=== PATIENT | male | born 1970 | race American Indian/Alaskan Native ===

== ENCOUNTER 2016-10-04 17:58 | Emergency (ER) | payer SELFPAY ==
[2016-10-04] MEDS ORDERED: TORADOL PO ONE (21:28)
--- NOTE | 2016-10-04 21:33 | Emergency Department Report ---
ED Extremity Problem HPI - General Chief complaint: Shoulder Injury Stated complaint: RT SHOULDER UNABLE TO MOVE Time Seen by Provider: 10/04/16 21:23 Source: patient Mode of arrival: Ambulatory Limitations: No Limitations - History of Present Illness Initial comments: PT states a week ago, he was working out and his R shoulder felt sore. PT states he has not lifted any more weights but this am, his shoulder pain increased and he could not move his shoulder. PT states he had to walk around some before he could move his arm. PT states he works as a [employer] and he uses his arm a lot. MD Complaint: extremity pain Onset/Timin -: Gradual, week(s) Location: right, upper extremity Severity scale (0 -10): 7 (7.5) Consistency: constant Worsens with: other (movement of R shoulder ) Associated Symptoms: denies other symptoms. denies: fever, myalgias - Related Data Home Medications Medication Instructions Recorded Confirmed Last Taken No Known Home Medications [No 10/04/16 10/04/16 Unknown Reported Home Medications] Allergies Allergy/AdvReac Type Severity Reaction Status Date / Time No Known Allergies Allergy Unverified 10/04/16 18:02 ED Review of Systems ROS: Stated complaint: RT SHOULDER UNABLE TO MOVE Other details as noted in HPI Comment: All other systems reviewed and negative Constitutional: denies: chills, fever Cardiovascular: denies: chest pain Gastrointestinal: denies: nausea, vomiting Genitourinary: other (denies darker urine ). denies: hematuria Musculoskeletal: arthralgia. denies: back pain, joint swelling, myalgia ED Past Medical Hx - Past Medical History Previous Medical History?: No - Surgical History Past Surgical History?: No - Family History Family history: no significant - Social History Smoking Status: Never Smoker Substance Use Type: Alcohol - Medications Home Medications: Home Medications Medication Instructions Recorded Confirmed Last Taken Type No Known Home Medications [No 10/04/16 10/04/16 Unknown History Reported Home Medications] ED Physical Exam - General Limitations: No Limitations General appearance: alert, in no apparent distress - Head Head exam: Present: atraumatic, normocephalic - Eye Eye exam: Present: normal appearance. Absent: conjunctival injection - ENT ENT exam: Present: normal exam, normal external ear exam - Neck Neck exam: Present: normal inspection, full ROM. Absent: tenderness - Respiratory Respiratory exam: Present: normal lung sounds bilaterally. Absent: respiratory distress - Cardiovascular Cardiovascular Exam: Present: regular rate, normal rhythm, normal heart sounds - Extremities Exam Extremities exam: Present: normal inspection, full ROM, normal capillary refill , other (PT has pain with raising his R arm). Absent: tenderness, joint swelling - Back Exam Back exam: Present: normal inspection, full ROM, tenderness - Neurological Exam Neurological exam: Present: alert, oriented X3 - Psychiatric Psychiatric exam: Present: normal affect, normal mood - Skin Skin exam: Present: warm, dry, intact, normal color ED Course Vital Signs 10/04/16 18:02 Temperature 98.4 F Pulse Rate 91 H Respiratory 18 Rate Blood Pressure 134/86 O2 Sat by Pulse 96 Oximetry - Reevaluation(s) Reevaluation #1: 10/04/16 21:35 PT aware of plan of care. Reevaluation #2: 10/04/16 22:40 PT aware of XR result and plan of care. PT has no questions at this time. - Pulse Oximetry Interpretation Digit-Finger Initial Pulse Oximetry Readin Actions Taken: none ED Medical Decision Making - Radiology Data Radiology results: image reviewed R shoulder: nap - Differential Diagnosis strain, OA, tendonitis Critical care attestation.: If time is entered above; I have spent that time in minutes in the direct care of this critically ill patient, excluding procedure time. ED Disposition Clinical Impression: Right shoulder pain Qualifiers: Chronicity: acute Qualified Code(s): M25.511 - Pain in right shoulder Disposition: DISCHARGED TO HOME OR SELFCARE Is pt being admited?: No Does the pt Need Aspirin: No Condition: Stable Instructions: Rotator Cuff Injury (ED), Rotator Cuff Tendinitis (ED), Shoulder Bursitis (ED), Shoulder Sprain (ED) Additional Instructions: Do not wear your sling for over 1 week No driving or ETOH after taking Robaxin or Tylenol #3 Follow up with PCP in 3-5 days If your pain persists, you may need further imaging or physical therapy Referrals: PRIMARY MD JAZZY [Primary Care Provider] - 3-5 Days SEBASTIAN KOHLER MD [Staff Physician] - 3-[address] [facility] [place] [Outside] - 3-5 Days Time of Disposition: 22:44
[2016-10-04 23:06] VITALS: BP 125/80
--- NOTE | 2016-10-05 07:33 | XRay Report ---
RIGHT SHOULDER, 3 views: History: Right shoulder pain. Mild osteoarthritic changes are identified at the a.c. joint. Normal articulation at the glenohumeral joint. No evidence for fracture, ligamentous injury or dislocation. The soft tissues are unremarkable. IMPRESSION: Early osteoarthritic changes.
== END 2016-10-04 23:06 | disposition home or self-care (01) ==
LOC: ED 17:58
DX: M25.511 Pain in right shoulder (principal)
CPT/HCPCS: 99283

== ENCOUNTER 2018-11-19 04:48 | Inpatient (IN) | payer SELFPAY ==
[2018-11-19] MEDS ORDERED: ASPIRIN PO ONE (04:56)
[2018-11-19 05:38] LABS: BUN/Creatinine Ratio 11; Blood Urea Nitrogen 14 mg/dL (9-20); Calcium 8.6 mg/dL (8.4-10.2); Hemolysis Index 25
--- NOTE | 2018-11-19 05:39 | XRay Report ---
PROCEDURE: XR CHEST 1V AP TECHNIQUE: Chest radiograph single view. HISTORY: Chest Pain COMPARISONS: None . FINDINGS: Heart: Normal. Mediastinum/Vessels: Normal. Lungs/Pleural space: Normal. Bony thorax: No acute osseous abnormality. Life support devices: None. IMPRESSION: No acute cardiopulmonary abnormality. This document is electronically signed by Veronica Rea DO., November 19 2018 05:37:02 AM ET
[2018-11-19 05:42] LABS: Hemoglobin 15.1 gm/dl (11.8-15.2); Mean Corpuscular HGB Conc 34 % (32-34); Mean Corpuscular Volume 92 fl (84-94); Red Blood Count 4.89 M/mm3 (3.65-5.03)
[2018-11-19 05:43] LABS: Basophils % (Auto) 0.4 % (0.0-1.8); Eosinophils # (Auto) 0.2 K/mm3 (0.0-0.4); Eosinophils % (Auto) 3.5 % (0.0-4.3); Lymphocytes # (Auto) 1.9 K/mm3 (1.2-5.4); Lymphocytes % (Auto) 44.5 % (13.4-35.0); Mean Platelet Volume 9.1 fl (6-12); Monocytes # (Auto) 0.4 K/mm3 (0.0-0.8); Monocytes % (Auto) 8.8 % (0.0-7.3); Platelet Count 189 K/mm3 (140-440); Red Cell Distribution Width 13.6 % (13.2-15.2)
[2018-11-19] MEDS ORDERED: NITRO-BID 2% TP ONE (08:50)
--- NOTE | 2018-11-19 09:08 | Emergency Department Report ---
HPI - General Chief Complaint: Chest Pain Time Seen by Provider: 11/19/18 08:33 - HPI HPI: Room 22 The patient is a 48-year-old male presents with a chief complaint of chest pain. The patient states for the past 2 days he's had intermittent left chest t ightness associated with shortness of breath and diaphoresis. Patient denies nausea or vomiting. Patient denies history of cough. The patient states he's never had a stress test or cardiac catheterization Location: Chest Duration: 2 days Quality: Tightness Severity: Moderate Modifying factors: [see above] Context: [see above] Mode of transportation: [not driving] ED Past Medical Hx - Past Medical History Previous Medical History?: Yes Hx Asthma: Yes - Surgical History Past Surgical History?: No - Family History Family history: no significant - Social History Smoking Status: Never Smoker Substance Use Type: None (denies illicit drug use), Alcohol (every other day) - Medications Home Medications: Home Medications Medication Instructions Recorded Confirmed Last Taken Type No Known Home Medications [No 11/19/18 11/19/18 Unknown History Reported Home Medications] ED Review of Systems ROS: Stated complaint: CHEST PAIN, SWOLLEN HANDS AND FEET Other details as noted in HPI Constitutional: diaphoresis Eyes: denies: eye pain ENT: denies: throat pain Respiratory: shortness of breath Cardiovascular: chest pain Endocrine: no symptoms reported Gastrointestinal: denies: nausea, vomiting Genitourinary: denies: dysuria Musculoskeletal: denies: back pain Neurological: headache Physical Exam - Physical Exam Vital Signs: Vital Signs 11/19/18 11/19/18 11/19/18 04:50 05:21 06:00 Temperature 97.5 F L 98.2 F Pulse Rate 66 57 L 55 L Respiratory 18 15 14 Rate Blood Pressure 145/102 124/76 Blood Pressure 146/85 [Left] O2 Sat by Pulse 98 97 94 Oximetry 11/19/18 07:00 Temperature Pulse Rate 47 L Respiratory 12 Rate Blood Pressure 108/81 Blood Pressure [Left] O2 Sat by Pulse Oximetry Physical Exam: GENERAL: The patient is well-developed well-nourished male lying on stretcher not appear to be in acute distress. [] HEENT: Normocephalic. Atraumatic. Extraocular motions are intact. Patient has moist mucous membranes. NECK: Supple. Trachea midline CHEST/LUNGS: Clear to auscultation. There is no respiratory distress noted. HEART/CARDIOVASCULAR: Regular. There is no tachycardia. There is no gallop rub or murmur. ABDOMEN: Abdomen is soft, nontender. Patient has normal bowel sounds. There is no abdominal distention. SKIN: There is no rash. There is no edema. There is no diaphoresis. NEURO: The patient is awake, alert, and oriented. The patient is cooperative. The patient has normal speech MUSCULOSKELETAL: There is no evidence of acute injury. ED Course Vital Signs 11/19/18 11/19/18 11/19/18 04:50 05:21 06:00 Temperature 97.5 F L 98.2 F Pulse Rate 66 57 L 55 L Respiratory 18 15 14 Rate Blood Pressure 145/102 124/76 Blood Pressure 146/85 [Left] O2 Sat by Pulse 98 97 94 Oximetry 11/19/18 07:00 Temperature Pulse Rate 47 L Respiratory 12 Rate Blood Pressure 108/81 Blood Pressure [Left] O2 Sat by Pulse Oximetry ED Medical Decision Making - Lab Data Result diagrams: 11/19/18 05:00 11/19/18 05:00 Laboratory Tests 11/19/18 11/19/18 11/19/18 05:00 05:00 07:36 WBC 4.4 L RBC 4.89 Hgb 15.1 Hct 45.0 MCV 92 MCH 31 MCHC 34 RDW 13.6 Plt Count 189 Lymph % (Auto) 44.5 H Henderson % (Auto) 8.8 H Eos % (Auto) 3.5 Baso % (Auto) 0.4 Lymph # 1.9 Henderson # 0.4 Eos # 0.2 Baso # 0.0 Seg Neutrophils % 42.8 Seg Neutrophils # 1.9 Sodium 139 Potassium 4.0 Chloride 104.5 Carbon Dioxide 23 Anion Gap 16 BUN 14 Creatinine 1.3 Estimated GFR > 60 BUN/Creatinine Ratio 11 Glucose 102 H Calcium 8.6 Troponin T < 0.010 < 0.010 - EKG Data -: EKG Interpreted by Me EKG shows normal: sinus rhythm Rate: normal - EKG Data When compared to previous EKG there are: previous EKG unavailable Interpretation: nonspecific ST-T wave lawrence (T-wave inversions in leads) - Radiology Data Radiology results: report reviewed (chest x-ray), image reviewed (chest x-ray) interpreted by me: Chest x-ray-no focal infiltrates, no pneumothorax [facility] [address] [place] [address] XRay Report Signed Patient: ANABELLE PORTILLO MR#: [id number] : 1970 Acct:[id number] Age/Sex: 48 / M ADM Date: 11/19/18 Loc: ED Attending Dr: Ordering Physician: NARCISA SWANSON MD Date of Service: 11/19/18 Pr ocedure(s): XR chest 1V ap Accession Number(s): [id number] cc: ED MD SKY Fluoro Time In Minutes: PROCEDURE: XR CHEST 1V AP TECHNIQUE: Chest radiograph single view. HISTORY: Chest Pain COMPARISONS: None . FINDINGS: Heart: Normal. Mediastinum/Vessels: Normal. Lungs/Pleural space: Normal. Bony thorax: No acute osseous abnormality. Life support devices: None. IMPRESSION: No acute cardiopulmonary abnormality. This document is electronically signed by Veronica Dupont DO., November 19 2018 05:37:02 AM ET Transcribed By: [facility] Dictated By: VERONICA DUPONT MD Electronically Authenticated By: VERONICA DUPONT MD Signed Date/Time: 11/19/18 0539 DD/ 6 TD/TT: 11/19/18516 - Differential Diagnosis ACS, pericarditis, GERD Critical care attestation.: If time is entered above; I have spent that time in minutes in the direct care of this critically ill patient, excluding procedure time. ED Disposition Clinical Impression: Chest pain, T wave inversion in EKG Disposition: DC-09 OP ADMIT IP TO THIS HOSP Is pt being admited?: Yes Does the pt Need Aspirin: Yes Condition: Fair Instructions: Chest Pain (ED) Referrals: [facility] DARIA [Primary Care Provider] - 3-5 Days Time of Disposition: 09:11 (hospitalist paged)
[2018-11-19] MEDS ORDERED: ASPIRIN ONE (09:20)
[2018-11-19] MEDS ORDERED: MORPHINE IV PRN (09:51)
[2018-11-19] MEDS ORDERED: SODIUM CHLORIDE FLUSH SYRINGE 10 ML IV PRN (09:51)
[2018-11-19] MEDS ORDERED: TYLENOL PO PRN (09:51)
[2018-11-19] MEDS ORDERED: ZOFRAN IV PRN (09:51)
[2018-11-19] MEDS ORDERED: NITROSTAT SL PRN (09:52)
[2018-11-19] MEDS ORDERED: APRESOLINE IV PRN (10:00)
--- NOTE | 2018-11-19 11:46 | Consultation ---
History of Present Illness Consult date: 11/19/18 Requesting physician: TYLER HUGHES Consult reason: chest pain History of present illness: The patient is a 48-year-old male with a past medical history of ETOH use (drinks Taniya 3-4 days per week). He is previously unknown to our practice. He does not regularly see doctors. He presented with c/o generalized swelling due to increased salt intake over the past few days. He also c/o abdominal pain and chest pain. This morning, he was awakened from sleep with generalized abdominal pain. He then noted the development of chest pain. He describes his chest pain as a left-sided stabbing pain which lasted for 1-2 minutes and then spontaneously resolved. He denies any current pain. He denies any SOB, palpitations, n/v, diaphoresis, dizziness or syncope. He works for a [employer] and prior to today, has had no chest pain or issues with physical exertion. He does report a history of hemorrhoids with recent intermittent bright red bleeding per rectum. Past History Past Medical History: No medical history Past Surgical History: hernia repair Social history: alcohol abuse. denies: smoking, prescription drug abuse Medications and Allergies Allergies Allergy/AdvReac Type Severity Reaction Status Date / Time No Known Allergies Allergy Verified 11/19/18 04:55 Home Medications Medication Instructions Recorded Confirmed Last Taken Type No Known Home Medications [No 11/19/18 11/19/18 Unknown History Reported Home Medications] Active Meds: Active Medications Acetaminophen (Tylenol) 650 mg PO Q4H PRN PRN Reason: Pain MILD(1-3)/Fever >100.5/MARRERO Aspirin (Baby Aspirin) 81 mg PO QDAY NIESHA Atorvastatin Calcium (Lipitor) 40 mg PO QHS NIESHA Hydralazine HCl (Apresoline) 10 mg IV Q4HR PRN PRN Reason: Blood Pressure Morphine Sulfate (Morphine) 2 mg IV Q4H PRN PRN Reason: Pain, Moderate (4-6) Stop: 11/20/18 23:59 Nitroglycerin (Nitrostat) 0.4 mg SL Q5M PRN PRN Reason: Chest Pain Ondansetron HCl (Zofran) 4 mg IV Q8H PRN PRN Reason: Nausea And Vomiting Sodium Chloride (Sodium Chloride Flush Syringe 10 Ml) 10 ml IV BID NIESHA Sodium Chloride (Sodium Chloride Flush Syringe 10 Ml) 10 ml IV PRN PRN PRN Reason: LINE FLUSH Review of Systems Constitutional: no weight loss, no weight gain, no fever, no chills, no sweats Ears, nose, mouth and throat: no ear pain, no nose pain, no sinus pressure, no sinus pain Cardiovascular: chest pain, edema (generalized), no orthopnea, no palpitations, no rapid/irregular heart beat, no syncope, no lightheadedness, no shortness of breath, no dyspnea on exertion, no paroxysmal nocturnal dyspnea, no high blood pressure, no leg edema, no decreased exercise tolerance Respiratory: no cough, no shortness of breath, no dyspnea on exertion, no congestion, no wheezing, no pain on inspiration Gastrointestinal: abdominal pain, BRBPR, no nausea, no vomiting, no diarrhea, no constipation, no change in bowel habits Genitourinary Male: no dysuria, no hematuria, no flank pain, no discharge, no urinary frequency, no urinary hesitancy Musculoskeletal: no neck stiffness, no neck pain, no shooting arm pain, no arm numbness/tingling, no low back pain, no shooting leg pain Integumentary: no rash, no pruritis, no redness, no sores, no wounds Neurological: no head injury, no paralysis, no weakness, no parathesias, no numbness, no tingling, no seizures, no syncope Psychiatric: no anxiety Endocrine: no cold intolerance, no heat intolerance Hematologic/Lymphatic: no easy bruising Allergic/Immunologic: no urticaria, no wheezing Physical Examination Vital Signs Temp Pulse Resp BP Pulse Ox 97.5 F L 66 18 145/102 98 11/19/18 04:50 11/19/18 04:50 11/19/18 04:50 11/19/18 04:50 11/19/18 04:50 General appearance: no acute distress HEENT: Positive: PERRL, Normocephaly, Mucus Membranes Moist Neck: Positive: neck supple, trachea midline Cardiac: Positive: Reg Rate and Rhythm, S1/S2 Lungs: Positive: Decreased Breath Sounds Neuro: Positive: Grossly Intact Abdomen: Positive: Soft. Negative: Tender Skin: Negative: Rash, Wound Musculoskeletal: No Pain Extremities: Absent: edema Results 11/19/18 05:00 11/19/18 05:00 CBC 04/29/19 Range/Units 05:00 WBC 4.4 L (4.5-11.0) K/mm3 RBC 4.89 (3.65-5.03) M/mm3 Hgb 15.1 (11.8-15.2) gm/dl Hct 45.0 (35.5-45.6) % Plt Count 189 (140-440) K/mm3 Lymph # 1.9 (1.2-5.4) K/mm3 [place] # 0.4 (0.0-0.8) K/mm3 Eos # 0.2 (0.0-0.4) K/mm3 Baso # 0.0 (0.0-0.1) K/mm3 Comprehensive Metabolic Panel 11/19/18 Range/Units 05:00 Sodium 139 (137-145) mmol/L Potassium 4.0 (3.6-5.0) mmol/L Chloride 104.5 (98-107) mmol/L Carbon Dioxide 23 (22-30) mmol/L BUN 14 (9-20) mg/dL Creatinine 1.3 (0.8-1.5) mg/dL Glucose 102 H (75-100) mg/dL Calcium 8.6 (8.4-10.2) mg/dL - Imaging and Cardiology Echo: pending EKG: report reviewed, image reviewed EKG interpretations - Telemetry EKG Rhythm: Sinus Rhythm - EKG Sinus rhythms and dysrhythmias: sinus rhythm Assessment and Plan AMI ruled out. Proceed with lexiscan MPI stress test and f/u echo. The patient has been seen in conjunction with Dr. Cartagena who agrees with the assessment and plan of care. - Patient Problems (1) Chest pain Current Visit: Yes Status: Acute (2) Sinus bradycardia Current Visit: Yes Status: Acute (3) Alcohol use Current Visit: Yes Status: Chronic
--- NOTE | 2018-11-19 14:07 | History and Physical Report ---
<TYLER HUGHES - Last Filed: 11/19/18 14:23> History of Present Illness Date of examination: 11/19/18 Date of admission: 11/19/18 09:16 Chief complaint: Swelling of fingers and chest. History of present illness: Mr. Benton is a 48-year-old -[place] male with history of hemorrhoids that presented to [facility] ED with c/o intermittent chest pain, dyspnea, diaphoresis, swelling of the fingers and chest for the past 2 days. He states that he feels that the swelling of his chest and fingers were due to increase salt intake. He admits to eating a diet with high sodium content for the past 2 days. Patient states he was awakened by generalized abdominal pain. The abdominal pain was followed by the development of left sided chest pain. He describes his chest pain as a left-sided stabbing 6/10 pain which lasted for 1-2 minutes and then spontaneously resolving. Pt states that he had recent bright red blood per rectum. He thinks it bleeding is associated with his history of hemorrhoids. Deneis nausea, vomiting, tobacco use, fever, chills, hemptoysis, recent sick contact. Admits to social ETOH use (drinks one shot Taniya 3-4 days per week) Past History Past Medical History: No medical history, other (hemorrhoids) Past Surgical History: hernia repair Social history: , lives with family, alcohol abuse (drinks 1 shot Hennes sey 3-4 days a week). denies: smoking, prescription drug abuse Family history: no significant family history Medications and Allergies Allergies Allergy/AdvReac Type Severity Reaction Status Date / Time No Known Allergies Allergy Verified 11/19/18 04:55 Home Medications Medication Instructions Recorded Confirmed Last Taken Type RX: No Known Home Medications [No 11/19/18 11/19/18 Unknown History Reported Home Medications] Active Meds: Active Medications Acetaminophen (Tylenol) 650 mg PO Q4H PRN PRN Reason: Pain MILD(1-3)/Fever >100.5/MARRERO Aspirin (Baby Aspirin) 81 mg PO QDAY NIESHA Atorvastatin Calcium (Lipitor) 40 mg PO QHS NIESHA Hydralazine HCl (Apresoline) 10 mg IV Q4HR PRN PRN Reason: Blood Pressure Morphine Sulfate (Morphine) 2 mg IV Q4H PRN PRN Reason: Pain, Moderate (4-6) Stop: 11/20/18 23:59 Nitroglycerin (Nitrostat) 0.4 mg SL Q5M PRN PRN Reason: Chest Pain Ondansetron HCl (Zofran) 4 mg IV Q8H PRN PRN Reason: Nausea And Vomiting Sodium Chloride (Sodium Chloride Flush Syringe 10 Ml) 10 ml IV BID NIESHA Sodium Chloride (Sodium Chloride Flush Syringe 10 Ml) 10 ml IV PRN PRN PRN Reason: LINE FLUSH Review of Systems Constitutional: no weight loss, no weight gain, no fever, no chills, no sweats Ears, nose, mouth and throat: no tinnitis, no epistaxis, no vertigo Cardiovascular: chest pain (intermittent), shortness of breath, no orthopnea, no palpitations Respiratory: no cough, no cough with sputum, no excessive sputum, no hemoptysis Gastrointestinal: abdominal pain (intermittent), no nausea, no vomiting, no diarrhea Genitourinary Male: no dysuria, no hematuria, no nocturia, no incontinence Rectal: bleeding, hemorrhoids, no pain, no incontinence Musculoskeletal: no shooting arm pain, no arm numbness/tingling, no leg numbness/tingling Integumentary: no rash, no redness, no sores Neurological: no weakness, no parathesias, no numbness, no tingling Psychiatric: no anxiety, no change in sleep habits, no sleep disturbances, no insomnia, no change in appetite, no suicidal ideation Endocrine: no polydipsia, no polyuria, no nocturia Hematologic/Lymphatic: no easy bruising, no easy bleeding Allergic/Immunologic: no wheezing, no seasonal allergies Exam - Constitutional Vitals: Temp Pulse Resp BP Pulse Ox 98.2 F 54 L 12 128/81 94 11/19/18 05:21 11/19/18 10:00 11/19/18 10:00 11/19/18 10:00 11/19/18 10:00 General appearance: Present: no acute distress, well-nourished - EENT Eyes: Present: PERRL ENT: hearing intact, clear oral mucosa - Neck Neck: Present: supple, normal ROM - Respiratory Respiratory effort: normal Respiratory: bilateral: CTA - Cardiovascular Heart rate: 54 (bpm/ SB) Rhythm: regular Heart Sounds: Present: S1 & S2. Absent: rub, click - Extremities Extremities: pulses symmetrical, No edema Peripheral Pulses: within normal limits - Abdominal General gastrointestinal: Present: soft, non-tender, non-distended, normal bowel sounds Male genitourinary: Present: deferred - Rectal Rectal Exam: deferred - Integumentary Integumentary: Present: clear, warm, dry - Musculoskeletal Musculoskeletal: gait normal, strength equal bilaterally - Psychiatric Psychiatric: appropriate mood/affect, intact judgment & insight - Neurologic Neurologic: CNII-XII intact, moves all extremities - Allied Health Allied health notes reviewed: nursing Results - Labs CBC & Chem 7: 11/19/18 05:00 11/19/18 05:00 Labs: Laboratory Last Values WBC 4.4 K/mm3 (4.5-11.0) L 11/19/18 05:00 RBC 4.89 M/mm3 (3.65-5.03) 11/19/18 05:00 Hgb 15.1 gm/dl (11.8-15.2) 11/19/18 05:00 Hct 45.0 % (35.5-45.6) 11/19/18 05:00 MCV 92 fl (84-94) 11/19/18 05:00 MCH 31 pg (28-32) 11/19/18 05:00 MCHC 34 % (32-34) 11/19/18 05:00 RDW 13.6 % (13.2-15.2) 11/19/18 05:00 Plt Count 189 K/mm3 (140-440) 11/19/18 05:00 Lymph % (Auto) 44.5 % (13.4-35.0) H 11/19/18 05:00 [place] % (Auto) 8.8 % (0.0-7.3) H 11/19/18 05:00 Eos % (Auto) 3.5 % (0.0-4.3) 11/19/18 05:00 Baso % (Auto) 0.4 % (0.0-1.8) 11/19/18 05:00 Lymph # 1.9 K/mm3 (1.2-5.4) 11/19/18 05:00 [place] # 0.4 K/mm3 (0.0-0.8) 11/19/18 05:00 Eos # 0.2 K/mm3 (0.0-0.4) 11/19/18 05:00 Baso # 0.0 K/mm3 (0.0-0.1) 11/19/18 05:00 Seg Neutrophils % 42.8 % (40.0-70.0) 11/19/18 05:00 Seg Neutrophils # 1.9 K/mm3 (1.8-7.7) 11/19/18 05:00 D-Dimer 143.47 ng/mlDDU (0-234) 11/19/18 11:23 Sodium 139 mmol/L (137-145) 11/19/18 05:00 Potassium 4.0 mmol/L (3.6-5.0) 11/19/18 05:00 Chloride 104.5 mmol/L (98-107) 11/19/18 05:00 Carbon Dioxide 23 mmol/L (22-30) 11/19/18 05:00 Anion Gap 16 mmol/L 11/19/18 05:00 BUN 14 mg/dL (9-20) 11/19/18 05:00 Creatinine 1.3 mg/dL (0.8-1.5) 11/19/18 05:00 Estimated GFR > 60 ml/min 11/19/18 05:00 BUN/Creatinine Ratio 11 % 11/19/18 05:00 Glucose 102 mg/dL (75-100) H 11/19/18 05:00 Hemoglobin A1c 6.1 % (4-6) H 11/19/18 11:23 Calcium 8.6 mg/dL (8.4-10.2) 11/19/18 05:00 Troponin T < 0.010 ng/mL (0.00-0.029) 11/19/18 11:23 Short CBC 11/19/18 11/19/18 11/19/18 Range/Units 05:00 05:00 07:36 WBC 4.4 L (4.5-11.0) K/mm3 RBC 4.89 (3.65-5.03) M/mm3 Hgb 15.1 (11.8-15.2) gm/dl Hct 45.0 (35.5-45.6) % MCV 92 (84-94) fl MCH 31 (28-32) pg MCHC 34 (32-34) % RDW 13.6 (13.2-15.2) % Plt Count 189 (140-440) K/mm3 Lymph % (Auto) 44.5 H (13.4-35.0) % [place] % (Auto) 8.8 H (0.0-7.3) % Eos % (Auto) 3.5 (0.0-4.3) % Baso % (Auto) 0.4 (0.0-1.8) % Lymph # 1.9 (1.2-5.4) K/mm3 [place] # 0.4 (0.0-0.8) K/mm3 Eos # 0.2 (0.0-0.4) K/mm3 Baso # 0.0 (0.0-0.1) K/mm3 Seg Neutrophils % 42.8 (40.0-70.0) % Seg Neutrophils # 1.9 (1.8-7.7) K/mm3 D-Dimer (0-234) ng/mlDDU Sodium 139 (137-145) mmol/L Potassium 4.0 (3.6-5.0) mmol/L Chloride 104.5 (98-107) mmol/L Carbon Dioxide 23 (22-30) mmol/L Anion Gap 16 mmol/L BUN 14 (9-20) mg/dL Creatinine 1.3 (0.8-1.5) mg/dL Estimated GFR > 60 ml/min BUN/Creatinine Ratio 11 % Glucose 102 H (75-100) mg/dL Hemoglobin A1c (4-6) % Calcium 8.6 (8.4-10.2) mg/dL Troponin T < 0.010 < 0.010 (0.00-0.029) ng/mL 11/19/18 11/19/18 11/19/18 Range/Units 11:23 11:23 11:23 WBC (4.5-11.0) K/mm3 RBC (3.65-5.03) M/mm3 Hgb (11.8-15.2) gm/dl Hct (35.5-45.6) % MCV (84-94) fl MCH (28-32) pg MCHC (32-34) % RDW (13.2-15.2) % Plt Count (140-440) K/mm3 Lymph % (Auto) (13.4-35.0) % [place] % (Auto) (0.0-7.3) % Eos % (Auto) (0.0-4.3) % Baso % (Auto) (0.0-1.8) % Lymph # (1.2-5.4) K/mm3 [place] # (0.0-0.8) K/mm3 Eos # (0.0-0.4) K/mm3 Baso # (0.0-0.1) K/mm3 Seg Neutrophils % (40.0-70.0) % Seg Neutrophils # (1.8-7.7) K/mm3 D-Dimer 143.47 (0-234) ng/mlDDU Sodium (137-145) mmol/L Potassium (3.6-5.0) mmol/L Chloride (98-107) mmol/L Carbon Dioxide (22-30) mmol/L Anion Gap mmol/L BUN (9-20) mg/dL Creatinine (0.8-1.5) mg/dL Estimated GFR ml/min BUN/Creatinine Ratio % Glucose (75-100) mg/dL Hemoglobin A1c 6.1 H (4-6) % Calcium (8.4-10.2) mg/dL Troponin T < 0.010 (0.00-0.029) ng/mL BMP 11/19/18 05:00 Sodium 139 Potassium 4.0 Chloride 104.5 Carbon Dioxide 23 BUN 14 Creatinine 1.3 Glucose 102 H Calcium 8.6 Cardiac Enzymes 11/19/18 11/19/18 11/19/18 Range/Units 05:00 07:36 11:23 Troponin T < 0.010 < 0.010 < 0.010 (0.00-0.029) ng/mL Assessment and Plan Assessment and plan: Mr. Benton is a 48-year-old -[place] male with history of hemorrhoids that presented to [facility] ED with c/o intermittent chest pain, dyspnea, diaph oresis, swelling of the fingers and chest for the past 2 days. He describes his chest pain as a left-sided stabbing 6/10 pain which lasted for 1-2 minutes and then spontaneously resolving. Pt states that he had recent bright red blood per rectum. He thinks it bleeding is associated with his history of hemorrhoids. Pt had abnormal EKG which revealed Sinus Bradycardia at 57 bpm, borderline ST eleva tion in lateral leads, and possible left anterior fascicular block. He will be admitted to Telemetry. He will receive Echo today with plans for Stress Testing in the morning. Cardiology has been consulted. Abnormal EKG EKG revealed: Sinus Bradycardia at 57 bpm, borderline ST elevation in lateral leads, and possible left anterior fascicular block Echo- pending Stress Testing in AM; will make NPO @ midnight Cardiology consulted Chest Pain Continuous telemetry monitoring Stat EKG for any acute changes PRN morphine and nitro Hx of Hemorrhoids Hgb on admission 15.1 H/H stable Monitor Hgb; consider GI consult if bleeding returns DVT PPX SCD's hold systemic AC d/t recent rectal bleeding Advance Directives: No VTE prophylaxis?: Mechanical Contraindication Mechanical VTE Prophylaxis: Contraindicated Reason for no VTE Prophylaxis: Bleeding Plan of care discussed with patient/family: Yes <ZACHERY JETER - Last Filed: 11/19/18 14:31> History of Present Illness Date of admission: 11/19/18 09:16 Medications and Allergies Active Meds: Active Medications Acetaminophen (Tylenol) 650 mg PO Q4H PRN PRN Reason: Pain MILD(1-3)/Fever >100.5/MARRERO Aspirin (Baby Aspirin) 81 mg PO QDAY NIESHA Atorvastatin Calcium (Lipitor) 40 mg PO QHS NIESHA Hydralazine HCl (Apresoline) 10 mg IV Q4HR PRN PRN Reason: Blood Pressure Morphine Sulfate (Morphine) 2 mg IV Q4H PRN PRN Reason: Pain, Moderate (4-6) Stop: 11/20/18 23:59 Nitroglycerin (Nitrostat) 0.4 mg SL Q5M PRN PRN Reason: Chest Pain Ondansetron HCl (Zofran) 4 mg IV Q8H PRN PRN Reason: Nausea And Vomiting Sodium Chloride (Sodium Chloride Flush Syringe 10 Ml) 10 ml IV BID NIESHA Sodium Chloride (Sodium Chloride Flush Syringe 10 Ml) 10 ml IV PRN PRN PRN Reason: LINE FLUSH Exam - Constitutional Vitals: Temp Pulse Resp BP Pulse Ox 98.2 F 54 L 12 128/81 94 11/19/18 05:21 11/19/18 10:00 11/19/18 10:00 11/19/18 10:00 11/19/18 10:00 Results - Labs CBC & Chem 7: 11/19/18 05:00 11/19/18 05:00 Labs: Laboratory Last Values WBC 4.4 K/mm3 (4.5-11.0) L 11/19/18 05:00 RBC 4.89 M/mm3 (3.65-5.03) 11/19/18 05:00 Hgb 15.1 gm/dl (11.8-15.2) 11/19/18 05:00 Hct 45.0 % (35.5-45.6) 11/19/18 05:00 MCV 92 fl (84-94) 11/19/18 05:00 MCH 31 pg (28-32) 11/19/18 05:00 MCHC 34 % (32-34) 11/19/18 05:00 RDW 13.6 % (13.2-15.2) 11/19/18 05:00 Plt Count 189 K/mm3 (140-440) 11/19/18 05:00 Lymph % (Auto) 44.5 % (13.4-35.0) H 11/19/18 05:00 [place] % (Auto) 8.8 % (0.0-7.3) H 11/19/18 05:00 Eos % (Auto) 3.5 % (0.0-4.3) 11/19/18 05:00 Baso % (Auto) 0.4 % (0.0-1.8) 11/19/18 05:00 Lymph # 1.9 K/mm3 (1.2-5.4) 11/19/18 05:00 [place] # 0.4 K/mm3 (0.0-0.8) 11/19/18 05:00 Eos # 0.2 K/mm3 (0.0-0.4) 11/19/18 05:00 Baso # 0.0 K/mm3 (0.0-0.1) 11/19/18 05:00 Seg Neutrophils % 42.8 % (40.0-70.0) 11/19/18 05:00 Seg Neutrophils # 1.9 K/mm3 (1.8-7.7) 11/19/18 05:00 D-Dimer 143.47 ng/mlDDU (0-234) 11/19/18 11:23 Sodium 139 mmol/L (137-145) 11/19/18 05:00 Potassium 4.0 mmol/L (3.6-5.0) 11/19/18 05:00 Chloride 104.5 mmol/L (98-107) 11/19/18 05:00 Carbon Dioxide 23 mmol/L (22-30) 11/19/18 05:00 Anion Gap 16 mmol/L 11/19/18 05:00 BUN 14 mg/dL (9-20) 11/19/18 05:00 Creatinine 1.3 mg/dL (0.8-1.5) 11/19/18 05:00 Estimated GFR > 60 ml/min 11/19/18 05:00 BUN/Creatinine Ratio 11 % 11/19/18 05:00 Glucose 102 mg/dL (75-100) H 11/19/18 05:00 Hemoglobin A1c 6.1 % (4-6) H 11/19/18 11:23 Calcium 8.6 mg/dL (8.4-10.2) 11/19/18 05:00 Troponin T < 0.010 ng/mL (0.00-0.029) 11/19/18 11:23 Assessment and Plan Assessment and plan: I saw and evaluated the patient. I agree with the findings and the plan of care as documented in the Nurse Practitioner's~note, with the following corrections and additions.
[2018-11-19] MEDS: SODIUM CHLORIDE FLUSH SYRINGE 10 ML IV SCH ×2 (16:46→21:53)
--- NOTE | 2018-11-19 23:58 | Treadmill Report ---
EXERCISE STRESS AND NUCLEAR TEST REPORT AGE: 48. SEX: Male. REFERRING NURSE PRACTITIONER: Vega Seen and dictated by Emmanuel Iraheta MD. DESCRIPTION OF PROCEDURE: The patient received 10 mCi of technetium 99m Myoview intravenously under resting conditions. Resting myocardial perfusion scan was done. Subsequently, the patient underwent exercise stress test as per the standard [facility] protocol. During exercise stress test, the patient received 28 mCi of technetium 99m Myoview intravenously. After 30-60 minutes, post stress images were done. Computerized reconstruction images were performed for analysis. The post-stress images revealed a very small inferoapical perfusion defect. Gated study did not reveal any wall motion abnormality. The left ventricular ejection fraction was normal and was calculated to be 70%. The resting images revealed reversibility of the perfusion defect seen in the stress images. CONCLUSION: 1. Very small mild reversible inferoapical defect as described above. This does not appear significant. 2. No wall motion abnormality. 3. Normal left ventricular ejection fraction of 70%. JOB# [id number] [facility]
[2018-11-20 06:21] LABS: Basophils % (Auto) 0.4 % (0.0-1.8); Eosinophils # (Auto) 0.2 K/mm3 (0.0-0.4); Eosinophils % (Auto) 5.3 % (0.0-4.3); Hematocrit 45.3 % (35.5-45.6); Hemoglobin 15.2 gm/dl (11.8-15.2); Lymphocytes % (Auto) 46.6 % (13.4-35.0); Mean Corpuscular HGB Conc 34 % (32-34); Mean Corpuscular Volume 93 fl (84-94); Monocytes # (Auto) 0.4 K/mm3 (0.0-0.8); Monocytes % (Auto) 8.3 % (0.0-7.3); Platelet Count 175 K/mm3 (140-440); Red Cell Distribution Width 13.4 % (13.2-15.2)
[2018-11-20 06:52] LABS: BUN/Creatinine Ratio 10; Blood Urea Nitrogen 13 mg/dL (9-20); Calcium 8.6 mg/dL (8.4-10.2); Hemolysis Index 17
[2018-11-20 09:01] VITALS: BP 132/75
--- NOTE | 2018-11-20 09:56 | Discharge Summary ---
Providers - Providers Date of Admission: 11/19/18 09:16 Date of discharge: 11/20/18 Attending physician: KATT MARCUS 11/19/18 09:52 Consult to Physician [CONS] Routine Comment: Consulting Provider: JULITA SALGUERO Physician Instructions: Reason For Exam: chest pain Primary care physician: [facility], Hospitalization Reason for admission: Chest pain Condition: Fair Pertinent studies: Chest x-ray; no acute abnormality Stress test; negative for reversible ischemia Echocardiogram; EF 50-55% Hospital course: 48-year-old -Russian male with history of hemorrhoids was admitted through [facility] ED with c/o intermittent chest pain, dyspnea, diaphoresis, past 2 days. states that he had recent bright red blood per rectum. He thinks it bleeding is associated with his history of hemorrhoids. No active bleeding during this admission H&H is stable, patient is initial evaluation admitted to the hospital symptomatically managed Evaluation by cardiology, underwent echo normal ejection fraction, stress test negative for reversible ischemia Patient's chest pain may be noncardiac, will advise Pepcid for 2 weeks Patient also had mild bradycardia, obesity, may need outpatient sleep study to rule out obstructive sleep apnea Today patient is comfortable in no new complaints vital signs stable physical examination unremarkable Advised to take plenty of fiber, stool softener f/u GI for further evaluation of history of rectal bleeding/hemorrhoids Patient verbalized understanding, Patient is hemodynamically and clinically stable at discharge Discharge diagnosis; --Atypical chest pain; probably noncardiac, stress test negative --GERD, probably the cause of chest pain, Pepcid --Obesity; BMI 36.7, advise weight reduction --Possible obstructive sleep apnea; outpatient evaluation with pulmonary, sleep study To rule out JOSÉ MIGUEL --History of hemorrhoids/rectal bleeding; no active bleeding now Advised stool softeners, high fiber diet, follow GI as outpatient Cleared by cardiology Stable at discharge Disposition: DC-01 TO HOME OR SELFCARE Time spent for discharge: 31 min Core Measure Documentation - Palliative Care Palliative Care/ Comfort Measures: Not Applicable - Core Measures Any of the following diagnoses?: none Exam - Constitutional Vitals: Temp Pulse Resp BP Pulse Ox 97.6 F 53 L 16 132/75 97 11/20/18 07:55 11/20/18 04:10 11/20/18 08:00 11/20/18 07:55 11/20/18 08:00 General appearance: Present: no acute distress, well-nourished, obese - EENT Eyes: Present: PERRL, EOM intact - Neck Neck: Present: supple, normal ROM - Respiratory Respiratory effort: normal Respiratory: bilateral: diminished, negative: rales, rhonchi, wheezing - Cardiovascular Rhythm: regular Heart Sounds: Present: S1 & S2 - Extremities Extremities: no ischemia, No edema - Abdominal General gastrointestinal: Present: soft, non-tender, non-distended, normal bowel sounds - Integumentary Integumentary: Present: clear, warm - Musculoskeletal Musculoskeletal: strength equal bilaterally - Psychiatric Psychiatric: appropriate mood/affect, cooperative - Neurologic Neurologic: CNII-XII intact, moves all extremities Plan Activity: no restrictions Diet: regular Additional Instructions: Exercise as tolerated and weight reduction when medically stable. Follow-up private rn critical care for outpatient sleep study to rule out obstructive sleep apnea Follow up with: [facility] MD DARIA [Primary Care Provider] - 3-5 Days SUNITA CHU MD [Staff Physician] - 7 Days KOREY AYALA MD [Staff Physician] - 7 Days Prescriptions: Famotidine [Pepcid] 20 mg PO BID #30 tablet
[2018-11-20] MEDS ORDERED: BABY ASPIRIN PO SCH (10:00)
--- NOTE | 2018-11-20 11:18 | Progress Note ---
Assessment and Plan S/p lexiscan MPI stress test yesterday which was negative. Echo reviewed - EF 50-55% with no significant abnormalities. Pt noted to have sinus bradycardia overnight, no pauses. Can consider OP sleep study. Currently stable cardiac status. Pt may discharge home from cardiology standpoint. Pt may follow up in our office with Dr. Cartagena on as needed basis if he develops reoccurrence of symptoms ([phone]). Pt verbalizes understanding. The patient has been seen in conjunction with Dr. Cartagena who agrees with the assessment and plan of care. - Patient Problems (1) Chest pain Current Visit: Yes Status: Acute (2) Sinus bradycardia Current Visit: Yes Status: Acute (3) Alcohol use Current Visit: Yes Status: Chronic Plan to address problem: cessation encouraged Subjective Date of service: 11/20/18 Principal diagnosis: cp Interval history: pt resting in bed, no current cardiac complaints. at bedside. tele reviewed - pt with some sinus bradycardia noted overnight, no pauses. Objective Last Vital Signs Temp 97.6 F 11/20/18 07:55 Pulse 53 L 11/20/18 04:10 Resp 16 11/20/18 08:00 BP 132/75 11/20/18 07:55 Pulse Ox 97 11/20/18 08:00 - Physical Examination General: No Apparent Distress HEENT: Positive: PERRL, Normocephaly, Mucus Membranes Moist Neck: Positive: neck supple, trachea midline Cardiac: Positive: Reg Rate and Rhythm, S1/S2 Lungs: Positive: clear to auscultation Neuro: Positive: Grossly Intact Abdomen: Positive: Soft. Negative: Tender Skin: Negative: Rash, Wound Musculoskeletal: No Pain Extremities: Absent: edema - Labs and Meds CBC 11/20/18 Range/Units 06:06 WBC 4.3 L (4.5-11.0) K/mm3 RBC 4.90 (3.65-5.03) M/mm3 Hgb 15.2 (11.8-15.2) gm/dl Hct 45.3 (35.5-45.6) % Plt Count 175 (140-440) K/mm3 Lymph # 2.0 (1.2-5.4) K/mm3 [place] # 0.4 (0.0-0.8) K/mm3 Eos # 0.2 (0.0-0.4) K/mm3 Baso # 0.0 (0.0-0.1) K/mm3 Comprehensive Metabolic Panel 11/20/18 Range/Units 06:06 Sodium 142 (137-145) mmol/L Potassium 4.4 (3.6-5.0) mmol/L Chloride 106.5 (98-107) mmol/L Carbon Dioxide 23 (22-30) mmol/L BUN 13 (9-20) mg/dL Creatinine 1.3 (0.8-1.5) mg/dL Glucose 108 H (75-100) mg/dL Calcium 8.6 (8.4-10.2) mg/dL - Imaging and Cardiology EKG: report reviewed, image reviewed Pharmacologic stress test: report reviewed Echo: report reviewed - Telemetry EKG Rhythm: Sinus Rhythm - EKG Sinus rhythms and dysrhythmias: sinus rhythm
== END 2018-11-20 13:25 | disposition home or self-care (01) | DRG 392 ==
LOC: ED 04:48 → 4A 09:16
PROVIDERS: ADMIT Internal Medicine; ATTEND Internal Medicine
DX: K21.9 Gastro-esophageal reflux disease without esophagitis (principal); R94.31 Abnormal electrocardiogram [ECG] [EKG]; R00.1 Bradycardia, unspecified; G47.33 Obstructive sleep apnea (adult) (pediatric); F10.10 Alcohol abuse, uncomplicated; E66.9 Obesity, unspecified; Z68.36 Body mass index [BMI] 36.0-36.9, adult; Z71.3 Dietary counseling and surveillance
CPT/HCPCS: 36415; 71045; 78452; 80048; 83036; 84484; 85025; 85379; 93005; 93010; 93017; 93306; G0378; A9270-GY; A9502